=== PATIENT | female | born 1995 | race Caucasian/White ===

== ENCOUNTER 2017-04-06 22:18 | Emergency (ER) | payer OTHER ==
[~2017-04-06] VITALS: Ht 160 cm; Wt 113.4 kg
[~2017-04-06 22:18] MED LIST: ACETAMINOPHEN-H1 TA2 PO; AUGMENTIN 875875 MG PO; CEPHALEXIN500 M1 PO; CLINDAMYCIN HC300 MG PO; DARVOCET N 1001 TAB PO; FLAGYL500 MG PO; FLEXERIL10 MG PO; MACROBID100 M1 PO; MOTRIN800 MG PO; Motrin,Rufen800 MG PO; NAPROSYN500 MG PO; OMEPRAZOLE20 MG PO; PREDNICOT20 MG PO; PRENATAL1 TA7 PO; ROXICODONE5 MG PO; ZOFRAN4 MG PO; Zofran4 MG PO
[2017-04-06 22:27] VITALS: BP 148/108
[2017-04-06 22:59] LABS: BILIRUBIN 1+ (NEGATIVE); BLOOD NEGATIVE (NEGATIVE); CLARITY CLEAR (CLEAR); COLOR YELLOW (YELLOW); GLUCOSE NEGATIVE (NEGATIVE); KETONE TRACE (NEGATIVE); LEUKO ESTERASE NEGATIVE (NEGATIVE); NITRITE NEGATIVE (NEGATIVE); PH 5.5 (5.0-9.0); PROTEIN TRACE (NEGATIVE); SPECIFIC GRAVITY >= 1.030 (1.005-1.030)
[2017-04-06 23:08] LABS: EPITHELIAL CELLS 20-25
[2017-04-06 23:09] LABS: WBC 0-2 wbc/hpf (0-5)
[2017-04-06 23:16] LABS: URINE REFLEX COMMENT NO (NO)
== END 2017-04-07 00:24 | disposition home or self-care (01) ==
LOC: ED 22:18
PROVIDERS: Nurse Practitioner Family
DX: R10.31 Right lower quadrant pain (principal); Y04.0XXA Assault by unarmed brawl or fight, initial encounter; Y93.89 Activity, other specified; Y92.89 Other specified places as the place of occurrence of the external cause; Y99.8 Other external cause status

== ENCOUNTER 2017-08-11 16:56 | Emergency (ER) | payer OTHER ==
[~2017-08-11] VITALS: Ht 160 cm; Wt 120.2 kg
[2017-08-11 19:02] VITALS: BP 118/64
[2017-08-11] MEDS ORDERED: ZITHROMAX250 MG PO (19:58)
== END 2017-08-11 23:01 | disposition home or self-care (01) ==
LOC: ED 16:56
DX: J06.9 Acute upper respiratory infection, unspecified (principal); Z88.0 Allergy status to penicillin

== ENCOUNTER 2018-07-25 19:29 | Emergency (ER) | payer OTHER ==
[~2018-07-25 19:29] MED LIST changes: +ZITHROMAX250 MG PO
[2018-07-25] MEDS ORDERED: ZITHROMAX250 MG PO (20:25)
[2018-07-25] MEDS ORDERED: FLONASE ALLERG9.9 ML NAS (20:25)
== END 2018-07-25 20:33 | disposition home or self-care (01) ==
LOC: ED 19:29
DX: J01.90 Acute sinusitis, unspecified (principal); Z88.0 Allergy status to penicillin; Z98.890 Other specified postprocedural states

== ENCOUNTER 2019-12-04 21:59 | Emergency (ER) | payer OTHER ==
[~2019-12-04] VITALS: Ht 160 cm; Wt 122.5 kg
[~2019-12-04 21:59] MED LIST changes: +FLONASE ALLERG9.9 ML NAS
[2019-12-04 22:44] VITALS: BP 115/65
[2019-12-05] MEDS ORDERED: Motrin,Rufen800 MG PO (02:15)
== END 2019-12-05 01:45 | disposition home or self-care (01) ==
LOC: ED 21:59
DX: S80.02XA Contusion of left knee, initial encounter (principal); F17.200 Nicotine dependence, unspecified, uncomplicated; Z88.0 Allergy status to penicillin; W10.8XXA Fall (on) (from) other stairs and steps, initial encounter; Y93.89 Activity, other specified; Y92.89 Other specified places as the place of occurrence of the external cause; Y99.8 Other external cause status

== ENCOUNTER 2020-12-19 13:58 | Emergency (ER) | payer OTHER ==
[~2020-12-19] VITALS: Ht 152.4 cm; Wt 122.5 kg
[2020-12-19 14:03] VITALS: BP 118/75
[2020-12-19 16:42] LABS: BASO % 0.2 % (0.0-1.0); EOS % 0.7 % (1.0-4.0); HEMATOCRIT 37.4 % (37.0-47.0); LYMPH # 1.8 10*3/uL (1.3-4.4); LYMPH % 32.5 % (27.0-41.0); MEAN CELL VOLUME 82.9 fl (81.0-99.0); MEAN CORPUSCULAR HGB 26.6 pg (27.0-31.0); MEAN CORPUSCULAR HGB CONC 32.1 g/dl (33.0-37.0); MEAN PLATELET VOLUME 10.6 fl (9.6-12.3); MONO # 0.3 10*3/uL (0.1-1.0); MONO % 5.8 % (3.0-9.0); NEUT # 3.3 10*3/uL (2.3-7.9); NEUT % 60.6 % (47.0-73.0); PLATELET COUNT AUTOMATED 215 10*3/uL (130-400); RED BLOOD COUNT 4.51 10*6/uL (4.10-5.10); RED CELL DISTRI WIDTH 12.7 % (0-14.5); WHITE BLOOD COUNT 5.5 10*3/uL (4.8-10.8)
[2020-12-19 17:05] LABS: ALBUMIN 3.5 gm/dl (3.1-4.5); ALKALINE PHOSPHATASE 48 U/L (45-117); BUN 17 mg/dl (7-24); CHLORIDE 109 mmol/L (98-107); CREATININE 0.73 mg/dL (0.55-1.02); LIPASE 50 U/L (73-393); POTASSIUM 3.7 mmol/L (3.5-5.1); SGOT/AST 29 IU/L (3-35); SGPT/ALT 33 U/L (12-78); SODIUM 143 mmol/L (136-145); TOTAL PROTEIN 7.3 gm/dL (6.4-8.2)
[2020-12-19 17:13] LABS: BILIRUBIN 1+ (Negative); BLOOD 3+ (Negative); CLARITY Turbid (Clear); COLOR Red (Yellow); GLUCOSE Negative (Negative); KETONE Negative (Negative); LEUKO ESTERASE 2+ (Negative); NITRITE Negative (Negative); SPECIFIC GRAVITY >= 1.030 (1.001-1.030)
[2020-12-19 17:46] LABS: BACTERIA 2+; EPITHELIAL CELLS TNTC; RBC TNTC rbc/hpf (0-2)
== END 2020-12-19 18:08 | disposition home or self-care (01) ==
LOC: ED 13:58
PROVIDERS: Physician Assistant
DX: N92.1 Excessive and frequent menstruation with irregular cycle (principal); Z79.899 Other long term (current) drug therapy; Z98.890 Other specified postprocedural states

== ENCOUNTER → 2022-10-13 | Outpatient (CLI) | payer OTHER | END | disposition home or self-care (01) | LOC: RAD 14:31 | PROVIDERS: ATTEND Family Medicine | DX: M25.572 Pain in left ankle and joints of left foot (principal) ==

== ENCOUNTER → 2024-02-10 | Outpatient (CLI) | payer OTHER | END | disposition home or self-care (01) | LOC: US 12:02 | PROVIDERS: ATTEND Nurse Practitioner Family | DX: N93.9 Abnormal uterine and vaginal bleeding, unspecified (principal); R93.89 Abnormal findings on diagnostic imaging of other specified body structures ==